=== PATIENT | male | born 1945 | race Caucasian/White ===

== ENCOUNTER 2017-01-17 10:17 | Emergency (ER) | payer OTHER ==
[~2017-01-17] VITALS: Ht 167.6 cm; Wt 77.1 kg
[~2017-01-17 10:17] MED LIST: ADAL40KI SQ; AMIO200T42 PO; ASPI-496 PO; ASPI325T17 PO; CHOL100012 PO; CHOL40002 PO; CIPR500T87 PO; CLIN300C3 PO; CLOP75TA PO; CLOP75TA52 PO; DOCU-131 PO; FURO-92 PO; METO50TA4 PO; METR500T PO; MULT-224 PO; NEOM500T PO; OMEP-110 PO; OXYC-307 PO; POTA20TA14 PO; SIMV20TA3 PO; SITA100T PO
[2017-01-17 10:18] VITALS: BP 146/83
[2017-01-17] MEDS ORDERED: PHENYLEPHRINE NASAL 1%, 15ML SPRAY ONE (11:05)
[2017-01-17] MEDS ORDERED: L.E.T SOLUTION TP ONE ×2 (11:05→11:30)
[2017-01-17] MEDS ORDERED: DAPA5TAB PO (11:15)
[2017-01-17] MEDS ORDERED: PHENYLEPHRINE NASAL 1%, 30ML DROPS NAS ONE (11:30)
[2017-01-17] MEDS ORDERED: SILVER NITRATE STICK TP ONE (11:38)
== END 2017-01-17 12:53 | disposition home or self-care (01) ==
LOC: ED 11:25
DX: R04.0 Epistaxis (principal); I10 Essential (primary) hypertension; E11.9 Type 2 diabetes mellitus without complications; Z95.1 Presence of aortocoronary bypass graft
CPT/HCPCS: 30901; 99284

== ENCOUNTER → 2017-07-23 | Outpatient (CLI) | payer OTHER ==
[~2017-07-23] MED LIST changes: +DAPA5TAB PO
== END | disposition home or self-care (01) ==
LOC: CFH 12:00
PROVIDERS: ATTEND Internal Medicine
DX: Z13.820 Encounter for screening for osteoporosis (principal); M85.80 Other specified disorders of bone density and structure, unspecified site; M81.0 Age-related osteoporosis without current pathological fracture
CPT/HCPCS: 77080

== ENCOUNTER → 2017-10-21 | Outpatient (CLI) | payer OTHER | END | disposition home or self-care (01) | LOC: CFH 15:46 | PROVIDERS: ATTEND Internal Medicine | DX: K76.89 Other specified diseases of liver (principal); Z87.891 Personal history of nicotine dependence | CPT/HCPCS: 76700 ==

== ENCOUNTER → 2018-12-23 | Outpatient (CLI) | payer OTHER ==
[~2018-12-23] MED LIST changes: -MULT-224 PO; +MULT-642 PO
== END | disposition home or self-care (01) ==
LOC: CFH 08:38
PROVIDERS: ATTEND Nurse Practitioner
DX: R74.8 Abnormal levels of other serum enzymes (principal); E11.9 Type 2 diabetes mellitus without complications; I10 Essential (primary) hypertension; E78.5 Hyperlipidemia, unspecified; K21.9 Gastro-esophageal reflux disease without esophagitis; K22.70 Barrett's esophagus without dysplasia; K29.30 Chronic superficial gastritis without bleeding; K76.0 Fatty (change of) liver, not elsewhere classified; L30.1 Dyshidrosis [pompholyx]; Z95.1 Presence of aortocoronary bypass graft; Z86.010 Personal history of colon polyps; Z87.891 Personal history of nicotine dependence; Z88.1 Allergy status to other antibiotic agents; K76.89 Other specified diseases of liver
CPT/HCPCS: 76700

== ENCOUNTER 2018-12-30 15:15 | Inpatient (IN) | payer OTHER, MEDICARE ==
[~2018-12-30] VITALS: Ht 167.6 cm; Wt 74.3 kg
[2018-12-30 17:00] VITALS: BP 164/82
[2018-12-30] MEDS ORDERED: ONDANSETRON 2MG/ML, 2ML IVPush PRN (17:00)
[2018-12-30] MEDS ORDERED: PROMETHAZINE 25 MG/ML, 1ML IM PRN (17:00)
[2018-12-30] MEDS ORDERED: hydrALAzine 20 MG/ML, 1ML IVPush PRN (17:00)
[2018-12-30] MEDS ORDERED: morphine SULFATE 10 MG/ML, 1ML IVPush PRN (17:00)
[2018-12-30] MEDS ORDERED: ONDANSETRON ODT 4 MG PO PRN (17:00)
[2018-12-30] MEDS ORDERED: LOSA50TA14 PO (17:12)
[2018-12-30] MEDS ORDERED: ADAL40KI SQ (17:12)
[2018-12-30] MEDS ORDERED: ATOR40TA78 PO (17:12)
[2018-12-30] MEDS ORDERED: LIRA0.6P SQ (17:12)
[2018-12-30] MEDS ORDERED: SITA100T PO (17:12)
[2018-12-30] MEDS ORDERED: OMEP-110 PO (17:12)
[2018-12-30] MEDS ORDERED: DAPA10TA PO (17:12)
[2018-12-30] MEDS: SODIUM CHLORIDE 0.9% 1,000 ML IV SCH (17:19)
[2018-12-30] MEDS ORDERED: LORazepam 0.5MG TABLET PO PRN (17:30)
[2018-12-30] MEDS ORDERED: DEXTROSE 50%, 50ML SYRINGE IVPush PRN (17:30)
[2018-12-30] MEDS ORDERED: LORazepam 2 MG/ML, 1ML IV PRN ×5 (17:30)
[2018-12-30] MEDS ORDERED: LORazepam 1MG TABLET PO PRN ×4 (17:30)
[2018-12-30] MEDS ORDERED: DEXTROSE 4 GM TAB.CHEW PO PRN (17:30)
[2018-12-30] MEDS: PLEASE ENTER HEIGHT AND WEIGHT MC SCH (17:30)
[2018-12-30] MEDS ORDERED: GLUCAGON 1 MG IM PRN (17:30)
[2018-12-30 17:44] LABS: INTERNATIONAL NORMALIZED RATIO 1.16 (0.93-1.1); PROTHROMBIN TIME 12.1 Seconds (9.6-11.5)
[2018-12-30 17:49] LABS: ALANINE AMINOTRANSFERASE 76 U/L (12-78); ALBUMIN 3.3 g/dL (3.4-5.0); ANION GAP 12 mmol/L (5-15); CALCIUM 8.5 mg/dL (8.5-10.1); CHLORIDE 106 mmol/L (98-107)
[2018-12-30 18:00] LABS: ALKALINE PHOSPHATASE 116 U/L (45-117); BILIRUBIN,TOTAL 1.2 mg/dL (0.2-1.0); CREATININE 1.05 mg/dL (0.7-1.3); FREE T4 (FREE THYROXINE) 0.86 ng/dL (0.76-1.46); TOTAL PROTEIN 7.7 g/dL (6.4-8.2)
[2018-12-30 18:04] LABS: HEMOGLOBIN A1C 8.9 % (4.2-6.3)
[2018-12-30 18:12] LABS: BASOPHILS # (AUTO) 0.02 x10^3/uL (0-0.1); BASOPHILS % (AUTO) 0 % (0-1); EOSINOPHILS # (AUTO) 0.14 x10^3/uL (0-0.4); EOSINOPHILS % (AUTO) 3 % (1-7); LYMPHOCYTES # (AUTO) 0.59 x10^3/uL (1-3.4); LYMPHOCYTES % (AUTO) 11 % (22-44); MD MORPH REVIEW ONLY; MEAN CORPUSCULAR HEMOGLOBIN 29.6 pg (27.5-34.5); MEAN CORPUSCULAR HGB CONC 31.8 g/dL (33.2-36.2); MONOCYTES # (AUTO) 0.67 x10^3/uL (0.2-0.8); MONOCYTES % (AUTO) 12 % (2-9); NEUTROPHILS # (AUTO) 4.05 x10^3/uL (1.8-6.8); NEUTROPHILS % (AUTO) 74 % (42-75); PLATELET COUNT 97 x10^3/uL (130-400); RED BLOOD COUNT 3.65 x10^6/uL (4.38-5.82); RED CELL DISTRIBUTION WIDTH 19.5 % (9.4-14.8)
[2018-12-30 18:13] LABS: ANISOCYTOSIS 1+; POLYCHROMASIA 1+
[2018-12-30 18:16] LABS: <PLATELET ESTIMATE> DECREASED; PAPPENHEIMER BODIES 1+
[2018-12-30 18:17] LABS: LARGE PLATELETS 1+
[2018-12-30] MEDS: PANTOPRAZOLE 40 MG IV IVPush SCH (18:34)
[2018-12-30 19:10] VITALS: BP 167/87
[2018-12-30] MEDS ORDERED: ATORVASTATIN 40 MG TABLET PO SCH (21:00)
[2018-12-30] MEDS ORDERED: LOSARTAN 50MG TABLET PO SCH (21:00)
[2018-12-30] MEDS: INSULIN LISPRO 100 UNITS/ML, PEN SQ-INSULIN SCH (22:20)
[2018-12-31] MEDS: SODIUM CHLORIDE 0.9% 1,000 ML IV SCH (00:50)
[2018-12-31] MEDS: PLEASE ENTER HEIGHT AND WEIGHT MC SCH ×2 (01:30→07:30)
[2018-12-31] MEDS: OXYcodone IR 5MG TABLET PO PRN ×3 (01:35→09:10)
[2018-12-31 02:00] VITALS: BP 137/78
[2018-12-31] MEDS: PANTOPRAZOLE 40 MG IV IVPush SCH (05:13)
[2018-12-31 06:30] LABS: ALBUMIN 3.5 g/dL (3.4-5.0); ANION GAP 11 mmol/L (5-15); CALCIUM 8.9 mg/dL (8.5-10.1); CHLORIDE 107 mmol/L (98-107)
[2018-12-31] MEDS ORDERED: DEXTROSE 50%, 50ML SYRINGE IVPush PRN (06:30)
[2018-12-31] MEDS ORDERED: GLUCAGON 1 MG IM PRN (06:30)
[2018-12-31] MEDS ORDERED: DEXTROSE 4 GM TAB.CHEW PO PRN (06:30)
[2018-12-31 06:35] LABS: ALANINE AMINOTRANSFERASE 72 U/L (12-78); ALKALINE PHOSPHATASE 101 U/L (45-117); BILIRUBIN,TOTAL 1.6 mg/dL (0.2-1.0); CHOL/HDL RATIO 1.7; CHOLESTEROL, TOTAL 148 mg/dL (140-239); HDL CHOL % 57 % (26-37); HDL CHOLESTEROL (DIRECT) 85 mg/dL (40-60); LDL CHOLESTEROL,CALCULATED 44 mg/dL (54-169); LDL/HDL RATIO 0.5 (0.5-3.0); TOTAL PROTEIN 7.8 g/dL (6.4-8.2); TRIGLYCERIDES 97 mg/dL (50-200); VLDL CHOLESTEROL 19 mg/dL (0-25)
[2018-12-31] MEDS: INSULIN LISPRO 100 UNITS/ML, PEN SQ-INSULIN SCH ×3 (07:00→11:17)
[2018-12-31 08:07] VITALS: BP 132/78
[2018-12-31] MEDS ORDERED: SODIUM CHLORIDE FLUSH 10ML SYR IVF SCH (09:00)
[2018-12-31] MEDS ORDERED: MULTIVITAMIN 1 TABLET PO SCH (09:00)
[2018-12-31] MEDS ORDERED: METOPROLOL SUCCINATE 50 MG TAB.ER.24H PO SCH (09:00)
[2018-12-31] MEDS ORDERED: FOLI-17 PO (10:59)
[2018-12-31] MEDS ORDERED: OMEP-110 PO (10:59)
[2018-12-31] MEDS ORDERED: THIA100T67 PO (10:59)
== END 2018-12-31 12:21 | disposition home or self-care (01) | DRG 369 ==
LOC: 3N 15:44
PROVIDERS: ADMIT Family Medicine; ATTEND Hospitalist
DX: I85.11 Secondary esophageal varices with bleeding (principal); F10.239 Alcohol dependence with withdrawal, unspecified; K76.6 Portal hypertension; D69.6 Thrombocytopenia, unspecified; E11.9 Type 2 diabetes mellitus without complications; E78.5 Hyperlipidemia, unspecified; I10 Essential (primary) hypertension; I25.10 Atherosclerotic heart disease of native coronary artery without angina pectoris; I45.10 Unspecified right bundle-branch block; K22.70 Barrett's esophagus without dysplasia; K70.9 Alcoholic liver disease, unspecified; K74.60 Unspecified cirrhosis of liver; K76.0 Fatty (change of) liver, not elsewhere classified; L40.9 Psoriasis, unspecified; N20.0 Calculus of kidney; Z79.82 Long term (current) use of aspirin; Z87.442 Personal history of urinary calculi; Z87.891 Personal history of nicotine dependence; Z90.49 Acquired absence of other specified parts of digestive tract; Z95.1 Presence of aortocoronary bypass graft; Z88.8 Allergy status to other drugs, medicaments and biological substances
CPT/HCPCS: 36415; 80053; 80061; 82962; 83036; 83735; 84439; 84443; 85014; 85018; 85025; 85610; G0378; C9113; J1815; J7030

== ENCOUNTER → 2019-03-25 | Outpatient (CLI) | payer OTHER ==
[~2019-03-25] MED LIST changes: +ATOR40TA78 PO; +DAPA10TA PO; +FOLI-17 PO; +LIRA0.6P SQ; +LOSA50TA14 PO; +SIMV20TA19 PO; -SIMV20TA3 PO; +THIA100T67 PO
== END | disposition home or self-care (01) ==
LOC: EDSTATUS 14:00 → CFH 14:01
PROVIDERS: ATTEND Internal Medicine Cardiovascular Disease
DX: I08.0 Rheumatic disorders of both mitral and aortic valves (principal)
CPT/HCPCS: 93306

== ENCOUNTER → 2019-07-01 | Outpatient (CLI) | payer OTHER | END | disposition home or self-care (01) | LOC: CFH 12:24 | PROVIDERS: ATTEND Internal Medicine | DX: K76.0 Fatty (change of) liver, not elsewhere classified (principal); K76.89 Other specified diseases of liver; K76.9 Liver disease, unspecified; I10 Essential (primary) hypertension; E11.9 Type 2 diabetes mellitus without complications; E78.5 Hyperlipidemia, unspecified | CPT/HCPCS: 76700 ==

== ENCOUNTER → 2019-11-24 | Outpatient (CLI) | payer OTHER | END | disposition home or self-care (01) | LOC: CFH 10:59 | PROVIDERS: ATTEND Internal Medicine | DX: M19.012 Primary osteoarthritis, left shoulder (principal); M25.812 Other specified joint disorders, left shoulder ==